=== PATIENT | male | born 1955 | race Caucasian/White ===

== ENCOUNTER → 2017-08-20 | Outpatient (CLI) | payer BC ==
[~2017-08-20] MED LIST: AMLO10TA2 PO; ASCO100033 PO; ASPI-555 PO; CALC-866 PO; CYAN25002 SL; EZET1TAB26 PO; FEXO180T94 PO; FINA5TAB41 PO; FLUT16H NASAL; FURO20TA4 PO; LISI-613 PO; LISI1TAB13 PO; MULT-603 PO; PANT40TA25 PO; POTA8CAP10 PO; REGADENOSON 0.4 MG/5 ML PF SYG IVP SCH; SUCR1TAB2 PO; UBID50TA3 PO
== END | disposition home or self-care (01) ==
LOC: SHCH 08:47
PROVIDERS: ATTEND Internal Medicine Cardiovascular Disease
DX: I25.10 Atherosclerotic heart disease of native coronary artery without angina pectoris (principal)
CPT/HCPCS: 78452; 93017; 96374; A9500 ×2; J2785

== ENCOUNTER → 2018-04-02 | Outpatient (CLI) | payer BC ==
[~2018-04-02] MED LIST changes: -AMLO10TA2 PO; +AMLO10TA6 PO; +LORA-705 PO; +METO-391 PO; -REGADENOSON 0.4 MG/5 ML PF SYG IVP SCH; +RIVA20TA PO
== END | disposition home or self-care (01) ==
LOC: SHCH 09:21
PROVIDERS: ATTEND Internal Medicine Cardiovascular Disease
DX: I51.7 Cardiomegaly (principal); I48.0 Paroxysmal atrial fibrillation
CPT/HCPCS: 93306

== ENCOUNTER 2018-04-09 14:54 | Inpatient (IN) | payer BC | END 2018-04-16 18:45 | disposition home or self-care (01) | LOC: EDH 14:54 → EDHIP 17:21 → 2DH 23:33 | DX: J18.9 Pneumonia, unspecified organism (principal); I50.33 Acute on chronic diastolic (congestive) heart failure; I48.92 Unspecified atrial flutter; I34.0 Nonrheumatic mitral (valve) insufficiency; I10 Essential (primary) hypertension; Z91.041 Radiographic dye allergy status; I48.91 Unspecified atrial fibrillation; J45.909 Unspecified asthma, uncomplicated; I25.10 Atherosclerotic heart disease of native coronary artery without angina pectoris ==

== ENCOUNTER 2019-02-25 05:57 | Observation (INO) | payer BC ==
[2019-02-23 16:15] VITALS: BP 148/84
--- NOTE | 2019-02-23 16:16 | NUR ---
HR INFORMED DAWSON, MEDICAL IMAGING TECH OF PTS HEART RATE. PER DR. EARL, PT CAN GO HOME AND WILL PROCEED WITH PROCEDURE.
[2019-02-23 16:31] LABS: BASOPHILS % (AUTO) 0.7 % (0.0-5.0); EOSINOPHILS % (AUTO) 3.7 % (0.0-8.0); HEMATOCRIT 43.7 % (42-54); LYMPHOCYTES % (AUTO) 30.6 % (21.0-51.0); MEAN CORPUSCULAR HGB CONC 32.6 g/dL (32.0-36.0); MEAN CORPUSCULAR VOLUME 89.2 fL (79-99); MONOCYTES % (AUTO) 10.2 % (3.0-13.0); NEUTROPHILS % (AUTO) 54.8 % (40.0-77.0); PLATELET COUNT (AUTO) 194 K/uL (130-400); RED CELL DISTRIBUTION WIDTH 15.1 % (11.0-15.5); WHITE BLOOD COUNT (AUTO) 7.4 K/uL (4.8-10.8)
[2019-02-23 16:43] LABS: INR 1.15 (0.85-1.15); PARTIAL THROMBOPLASTIN TIME 32.1 SEC (26.3-35.5)
--- NOTE | 2019-02-24 13:28 | NUR ---
METOPROLOL INFORMED NATANAEL THAKKAR OF PT TAKING METOPROLOL 100MG BID AND NOT 150MG BID H&P STATES. PER JIGNESH MCQUEEN , OK TO PROCEED WITH PLANNED PROCEDURE.
[2019-02-25] VITALS (10 sets, daily range): BP systolic 86–137; BP diastolic 55–77
[~2019-02-25] VITALS: Ht 170.2 cm; Wt 106.0 kg
[~2019-02-25 05:57] MED LIST changes: +AEC81 PO; +ALBUTEROL SULFATE IH; -AMLO10TA6 PO; -ASPI-555 PO; -CALC-866 PO; -CYAN25002 SL; +DILT240C98 PO; -EZET1TAB26 PO; -FEXO180T94 PO; +FISH1CAP63 PO; +FLONASE NASAL; -FLUT16H NASAL; -FURO20TA4 PO; -LISI1TAB13 PO; +LISI1TAB29 PO; -LORA-705 PO; -METO-391 PO; +METOPROLOL ER PO; -POTA8CAP10 PO; +PROP325C5 PO; +SODIUM CHLORIDE 0.9% 500ML 500 ML IV SCH; -UBID50TA3 PO
[2019-02-25] MEDS ORDERED: SODIUM CHLORIDE 0.9% 1000ML 1,000 ML IV ONE (06:17)
[2019-02-25] MEDS ORDERED: LIDOCAINE HCL 2% 20ML ONE (08:32)
[2019-02-25] MEDS ORDERED: HEPARIN SODIUM 1000UNIT/ML 10ML VIAL ONE (08:32)
[2019-02-25] MEDS ORDERED: MIDAZOLAM HCL 1 MG/ML 2ML VIAL ONE ×3 (09:27→10:14)
[2019-02-25] MEDS ORDERED: MEPERIDINE-PF 25 MG/ML SYG ONE ×3 (09:27→10:14)
[2019-02-25] MEDS ORDERED: FLUMAZENIL 0.1MG/1ML 5ML VIAL IV ONE (10:37)
[2019-02-25] MEDS ORDERED: ALBUTEROL SULFATE 0.083% 2.5 MG/3 ML INH IH ONE (11:30)
--- NOTE | 2019-02-25 11:45 | NUR ---
PT BACK FROM [facility] [facility] VIA BED, PT. HAD A SUCCESSFUL A-FLUTTER ABLATION AND IS NOW IN SINUS. PT IS ON A NON-REBREATHER 2 [address]ERS[address]SPO2 86%. DR. EARL AWARE, PT. BEING ADMITTED TO PCCU, AND DR. LONGO FOR CONSULT.
--- NOTE | 2019-02-25 12:13 | NUR ---
PORTABLE X-RAY 1 VIEW DONE
--- NOTE | 2019-02-25 12:20 | NUR ---
SPOKE WITH DR. LONGO, TO ADMIT PT TO PCCU PER DAVID GARIBAY. IS AWARE OF PT. STATUS.
--- NOTE | 2019-02-25 13:18 | NUR ---
BRITTANIE LAWSON WEATHERIZATION ADMINISTRATOR HERE TO SEE PT. IN RM DAY 16
--- NOTE | 2019-02-25 13:40 | NUR ---
EKG ORDER PER DR. EARL DONE.
[2019-02-25] MEDS ORDERED: ONDANSETRON HCL 4 MG/2 ML VIAL IVP PRN (13:45)
[2019-02-25] MEDS ORDERED: ACETAMINOPHEN 325 MG TAB PO PRN (13:45)
--- NOTE | 2019-02-25 13:50 | NUR ---
PT. TSF TO 223 BY BED, ON O2 15 LITERS ON NONREBREATHER, REPORT GIVEN TO MELECIO BEAVER RN, BEDSIDE. PT.SITE RIGHT GROIN IS DRY AND INTACT. NO BLEEDING NO HEMATOMA, DP BILATERAL PRESENT. PT. VITALS STABLE.
[2019-02-25] MEDS ORDERED: APIXABAN 5 MG TABLET PO SCH (15:30)
[2019-02-26 03:00] VITALS: BP 141/82
[2019-02-26 06:19] LABS: BASOPHILS % (AUTO) 0.4 % (0.0-5.0); HEMATOCRIT 39.1 % (42-54); LYMPHOCYTES % (AUTO) 18.6 % (21.0-51.0); MEAN CORPUSCULAR HEMOGLOBIN 28.9 pg (27.0-33.0); MEAN CORPUSCULAR HGB CONC 32.7 g/dL (32.0-36.0); MEAN CORPUSCULAR VOLUME 88.5 fL (79-99); MONOCYTES % (AUTO) 11.6 % (3.0-13.0); NEUTROPHILS % (AUTO) 68.4 % (40.0-77.0); PLATELET COUNT (AUTO) 172 K/uL (130-400); RED BLOOD CELL COUNT(AUTO) 4.42 MIL/uL (4.50-6.20); RED CELL DISTRIBUTION WIDTH 15.3 % (11.0-15.5); WHITE BLOOD COUNT (AUTO) 8.6 K/uL (4.8-10.8)
[2019-02-26 06:31] LABS: POTASSIUM 4.1 mmol/L (3.5-5.1)
[2019-02-26 07:20] VITALS: BP 137/76
--- NOTE | 2019-02-26 07:45 | NUR ---
AM ASSESSMENT PT LAYING IN BED, HOB ELEVATED 30 DEGREES, WATCHING TV. A/O X 3. NO SOB. NO DISTRESS NOTED. DENIES CHEST PAIN OR DISCOMFORT. DENIES INCISIONAL PAIN. TELE: SR. DENIES N/V AND/OR DIARRHEA. RT GROIN DSG DRY & INTACT. DSTAT REMOVED @ THIS TIME. NO BLEEDING, NO HEMATOMA NOTED. (+) BILATERAL PEDAL PULSES. BLE PINK & WARM TO TOUCH. UP AD CHRIST. INSTRUCTED TO CALL FOR ASSISTANCE. CALL YUNIER W/IN REACH.
[2019-02-26] MEDS ORDERED: RIVAROXABAN 20 MG TABLET PO SCH (09:00)
[2019-02-26] MEDS ORDERED: PANTOPRAZOLE SODIUM 40 MG TABLET.DR PO SCH (09:00)
[2019-02-26 11:25] VITALS: BP 140/74
--- NOTE | 2019-02-26 12:15 | NUR ---
DISCHARGE VERBAL & WRITTEN DISCHARGE INSTRUCTIONS REVIEWED & GIVEN TO PT & SPOUSE. QUESTIONS ENCOURAGED & CLARIFIED. PROPER CARE & ACTIVITY AFTER CARDIAC ABLATION. PT TO CONTINUE HOME MEDICATIONS. F/U APPT INFO REVIEWED. TELE HUSAM REMOVED. IV DISCONTINUED. PT & SPOUSE TO GATHER PERSONAL BELONGINGS. WILL NOTIFY STAFF WHEN READY TO BE TAKEN TO PRIVATE VEHICLE.
--- NOTE | 2019-02-26 12:50 | NUR ---
DISCHARGE PT TAKEN TO PRIVATE VEHICLE VIA WC BY Dev DALE PCP, ACCOMPANIED BY SPOUSE. NO DISTRESS NOTED.
== END 2019-02-26 12:50 | disposition home or self-care (01) ==
LOC: DAH 05:57 → DAHIP 05:58 → DAH 05:58 → 2DH 18:38
PROVIDERS: ADMIT Internal Medicine; ATTEND Internal Medicine
DX: I48.92 Unspecified atrial flutter (principal); I48.0 Paroxysmal atrial fibrillation; I10 Essential (primary) hypertension; I45.89 Other specified conduction disorders; E78.5 Hyperlipidemia, unspecified; I73.9 Peripheral vascular disease, unspecified; K21.9 Gastro-esophageal reflux disease without esophagitis; K76.0 Fatty (change of) liver, not elsewhere classified; D50.9 Iron deficiency anemia, unspecified; N40.0 Benign prostatic hyperplasia without lower urinary tract symptoms; I25.10 Atherosclerotic heart disease of native coronary artery without angina pectoris; Z79.01 Long term (current) use of anticoagulants; Z79.82 Long term (current) use of aspirin; Z79.899 Other long term (current) drug therapy
CPT/HCPCS: 36415 ×2; 71045; 71046; 80048 ×2; 82948 ×5; 85025 ×2; 85610; 85730; 93005 ×2; 93613; 93621; 93653; 94640; 94660; A4215; A4216; A4221; A4222; A4223 ×3; A4606; A4649 ×2; A4663; C1730; C1732; C1894 ×2; G0378 ×31; J1644 ×2; J2175 ×3; J2250 ×3; J3490 ×2; J7030; 99156; 99157

== ENCOUNTER → 2021-07-12 | Outpatient (CLI) | payer BC, MEDICARE ==
[~2021-07-12] MED LIST changes: -LISI-613 PO; -LISI1TAB29 PO; +LISI1TAB53 PO; +LISI20TA24 PO; -PANT40TA25 PO; +PANT40TA54 PO; -SODIUM CHLORIDE 0.9% 500ML 500 ML IV SCH
== END | disposition home or self-care (01) ==
LOC: SHCH 09:56
PROVIDERS: ATTEND Internal Medicine Cardiovascular Disease
DX: I48.0 Paroxysmal atrial fibrillation (principal); I11.9 Hypertensive heart disease without heart failure; I25.10 Atherosclerotic heart disease of native coronary artery without angina pectoris; E78.5 Hyperlipidemia, unspecified
CPT/HCPCS: 93306

== ENCOUNTER 2021-11-11 06:38 | Day surgery (SDC) | payer BC, MEDICARE ==
[2021-11-07 13:40] LABS: BASOPHILS % (AUTO) 0.8 % (0.0-5.0); EOSINOPHILS % (AUTO) 3.5 % (0.0-8.0); HEMATOCRIT 39.4 % (42-54); LYMPHOCYTES % (AUTO) 28.3 % (21.0-51.0); MEAN CORPUSCULAR HEMOGLOBIN 25.8 pg (27.0-33.0); MEAN CORPUSCULAR HGB CONC 30.2 g/dL (32.0-36.0); MEAN CORPUSCULAR VOLUME 85.3 fL (79-99); MONOCYTES % (AUTO) 10.2 % (3.0-13.0); NEUTROPHILS % (AUTO) 56.9 % (40.0-77.0); PLATELET COUNT (AUTO) 230 K/uL (130-400); RED BLOOD CELL COUNT(AUTO) 4.62 MIL/uL (4.50-6.20); RED CELL DISTRIBUTION WIDTH 17.6 % (11.0-15.5); WHITE BLOOD COUNT (AUTO) 9.3 K/uL (4.8-10.8)
[2021-11-07 13:50] LABS: CREATININE 1.1 mg/dL (0.5-1.5); POTASSIUM 4.2 mmol/L (3.5-5.1)
[2021-11-07 13:54] LABS: INR 1.57 (0.85-1.15); PROTHROMBIN TIME 16.7 SEC (9.6-11.6)
[2021-11-07 13:55] LABS: PARTIAL THROMBOPLASTIN TIME 39.1 SEC (26.3-35.5)
[2021-11-08 09:08] VITALS: BP 147/75
[2021-11-11] VITALS (19 sets, daily range): BP systolic 124–156; BP diastolic 69–92
[~2021-11-11] VITALS: Ht 170.2 cm; Wt 100.9 kg
[~2021-11-11 06:38] MED LIST changes: -ALBUTEROL SULFATE IH; +CHOL200052 PO; +DRON400T7 PO; +EZET10TA48 PO; -FLONASE NASAL; -LISI20TA24 PO; +METO-391 PO; -METOPROLOL ER PO; -PANT40TA54 PO; -PROP325C5 PO; +ROSU40TA21 PO; -SUCR1TAB2 PO; +VITA1CAP85 PO
[2021-11-11] MEDS ORDERED: 0.9%NACL 1000ML 1,000 ML IV ONE (07:59)
== END 2021-11-11 10:40 | disposition home or self-care (01) ==
LOC: CLH 06:38 → DAH 06:38 → CLH 10:40
PROVIDERS: ATTEND Internal Medicine Cardiovascular Disease
DX: I48.19 Other persistent atrial fibrillation (principal); I10 Essential (primary) hypertension; K21.9 Gastro-esophageal reflux disease without esophagitis; E78.5 Hyperlipidemia, unspecified; E11.51 Type 2 diabetes mellitus with diabetic peripheral angiopathy without gangrene; D50.9 Iron deficiency anemia, unspecified; Z82.49 Family history of ischemic heart disease and other diseases of the circulatory system; Z98.890 Other specified postprocedural states; Z79.01 Long term (current) use of anticoagulants; Z88.2 Allergy status to sulfonamides
CPT/HCPCS: 87426; 80048; 85025; 85610; 85730; 36415; 92960; 93005 ×2; J7030; A4215; A4222; A4221; A4663; A4216; A4606; A4223 ×3; 99152

== ENCOUNTER → 2021-12-10 | Outpatient (CLI) | payer BC, MEDICARE ==
[~2021-12-10] MED LIST changes: +FOLI0.8T3 PO; +IOHEXOL 350 MG/ML 100ML INFUS..BTL IV ONE; +VITAMIN B12 SL
== END | disposition home or self-care (01) ==
LOC: RAH 12-04 10:05
PROVIDERS: ATTEND Internal Medicine Cardiovascular Disease
DX: I51.7 Cardiomegaly (principal); I48.19 Other persistent atrial fibrillation; I25.10 Atherosclerotic heart disease of native coronary artery without angina pectoris; E04.1 Nontoxic single thyroid nodule; I87.8 Other specified disorders of veins; K44.9 Diaphragmatic hernia without obstruction or gangrene; K76.0 Fatty (change of) liver, not elsewhere classified; M47.815 Spondylosis without myelopathy or radiculopathy, thoracolumbar region
CPT/HCPCS: 71275; Q9967

== ENCOUNTER 2021-12-17 05:52 | Inpatient (IN) | payer BC, MEDICARE ==
[2021-12-12 09:59] LABS: BASOPHILS % (AUTO) 0.6 % (0.0-5.0); HEMATOCRIT 40.5 % (42-54); MEAN CORPUSCULAR HEMOGLOBIN 25.3 pg (27.0-33.0); MEAN CORPUSCULAR HGB CONC 30.4 g/dL (32.0-36.0); MEAN CORPUSCULAR VOLUME 83.3 fL (79-99); MONOCYTES % (AUTO) 11.7 % (3.0-13.0); NEUTROPHILS % (AUTO) 58.3 % (40.0-77.0); PLATELET COUNT (AUTO) 208 K/uL (130-400); RED BLOOD CELL COUNT(AUTO) 4.86 MIL/uL (4.50-6.20); RED CELL DISTRIBUTION WIDTH 17.2 % (11.0-15.5)
[2021-12-12 10:09] LABS: INR 1.49 (0.85-1.15); PROTHROMBIN TIME 15.9 SEC (9.6-11.6)
[2021-12-12 10:11] LABS: POTASSIUM 4.1 mmol/L (3.5-5.1)
[2021-12-12 11:30] VITALS: BP 141/78
[2021-12-17] VITALS (23 sets, daily range): BP systolic 122–147; BP diastolic 54–81
[~2021-12-17] VITALS: Ht 170.2 cm; Wt 113.4 kg
[~2021-12-17 05:52] MED LIST changes: -IOHEXOL 350 MG/ML 100ML INFUS..BTL IV ONE
[2021-12-17] MEDS ORDERED: HEPARIN 10,000 UNIT/10ML (1,000 UNIT/ML) VIAL ONE ×2 (07:16→07:51)
[2021-12-17] MEDS ORDERED: LIDOCAINE HCL 1% 20 ML VIAL ONE ×2 (07:16→07:51)
[2021-12-17] MEDS ORDERED: MIDAZOLAM HCL 1 MG/ML 2ML VIAL ONE (07:47)
[2021-12-17] MEDS ORDERED: ONDANSETRON 4MG INJ ONE (07:51)
[2021-12-17] MEDS ORDERED: GLYCOPYRROLATE 1 MG/5 ML SYRINGE ONE (07:51)
[2021-12-17] MEDS ORDERED: PHENYLEPHRINE HCL 10 MG/ML 1ML VIAL IV ONE (07:51)
[2021-12-17] MEDS ORDERED: SUCCINYLCHOLINE CHLORIDE 20 MG/ML 10 ML VIAL ONE (07:51)
[2021-12-17] MEDS ORDERED: EPHEDRINE SULFATE 50 MG/ML AMPULE ONE ×2 (07:52→11:12)
[2021-12-17] MEDS ORDERED: NEOSTIGMINE 5MG/5ML SYR IV ONE (07:52)
[2021-12-17] MEDS ORDERED: PROPOFOL 10 MG/ML 20ML VIAL IV ONE (07:52)
[2021-12-17] MEDS ORDERED: ROCURONIUM 10MG/1ML SYR 10 MG/ML ML ONE (07:52)
[2021-12-17] MEDS ORDERED: FENTANYL CITRATE PF 50 MCG/1 ML 2ML VIAL ONE ×2 (07:52→11:37)
[2021-12-17] MEDS ORDERED: 0.9%NACL 1000ML 1,000 ML IV ONE (08:23)
[2021-12-17] MEDS ORDERED: ISOPROTERENOL HCL 0.2 MG/ML AMP/VIAL/BAG ONE (11:03)
[2021-12-17] MEDS ORDERED: PROTAMINE SULFATE 10 MG/ML 25ML VIAL IV ONE (11:51)
[2021-12-17] MEDS: SUCRALFATE 1 GM TABLET PO SCH ×2 (12:00→17:24)
[2021-12-17] MEDS ORDERED: PANTOPRAZOLE 40 MG TAB DR PO SCH (12:00)
[2021-12-17] MEDS ORDERED: APIXABAN 5 MG TABLET PO SCH (20:00)
[2021-12-17] MEDS: FISH OIL 1000 MG/CAP PO SCH (20:19)
[2021-12-17] MEDS: EZETIMIBE 10 MG TAB PO SCH (20:19)
[2021-12-17] MEDS: METOPROLOL SUCCINATE 50 MG TAB.SR.24H PO SCH (20:19)
[2021-12-17] MEDS: ASPIRIN 81 MG EC TAB PO SCH (20:19)
[2021-12-17] MEDS: DRONEDARONE HYDROCHLORIDE 400 MG TABLET PO SCH (20:19)
[2021-12-17] MEDS: ATORVASTATIN 40 MG TABLET PO SCH (20:19)
[2021-12-18] VITALS (11 sets, daily range): BP systolic 110–154; BP diastolic 55–91
[2021-12-18] MEDS: SUCRALFATE 1 GM TABLET PO SCH ×5 (01:08→23:02)
[2021-12-18 04:08] LABS: BASOPHILS % (AUTO) 0.2 % (0.0-5.0); EOSINOPHILS % (AUTO) 0.2 % (0.0-8.0); HEMATOCRIT 38.1 % (42-54); LYMPHOCYTES % (AUTO) 9.3 % (21.0-51.0); MEAN CORPUSCULAR HEMOGLOBIN 24.8 pg (27.0-33.0); MEAN CORPUSCULAR HGB CONC 29.9 g/dL (32.0-36.0); MONOCYTES % (AUTO) 14.3 % (3.0-13.0); NEUTROPHILS % (AUTO) 75.5 % (40.0-77.0); PLATELET COUNT (AUTO) 195 K/uL (130-400); RED BLOOD CELL COUNT(AUTO) 4.59 MIL/uL (4.50-6.20); RED CELL DISTRIBUTION WIDTH 18.1 % (11.0-15.5); WHITE BLOOD COUNT (AUTO) 12.2 K/uL (4.8-10.8)
[2021-12-18 04:29] LABS: POTASSIUM 3.5 mmol/L (3.5-5.1)
[2021-12-18] MEDS ORDERED: POTASSIUM CHLORIDE 20MEQ/100ML 100 ML IV PRN (07:00)
[2021-12-18] MEDS ORDERED: LIDOCAINE HCL-MPF 1% 2ML VIAL IV PRN (07:00)
[2021-12-18] MEDS ORDERED: POTASSIUM CHLORIDE 10% ELIXIR 20 MEQ/15 ML UDCUP PO PRN (07:00)
[2021-12-18] MEDS: KCL 20 MEQ ERTAB PO PRN ×2 (07:14→09:19)
[2021-12-18] MEDS: CHOLECALCIFEROL 100 MCG PO SCH (07:31)
[2021-12-18] MEDS ORDERED: DILTIAZEM 120MG SR CAP PO SCH (09:00)
[2021-12-18] MEDS: HYDROCHLOROTHIAZIDE 25 MG TABLET PO SCH (09:15)
[2021-12-18] MEDS: LISINOPRIL 20 MG TABLET PO SCH (09:18)
[2021-12-18] MEDS: DRONEDARONE HYDROCHLORIDE 400 MG TABLET PO SCH (09:18)
[2021-12-18] MEDS: ASCORBIC ACID 500 MG TAB PO SCH (09:19)
[2021-12-18] MEDS: FINASTERIDE 5 MG TABLET PO SCH (09:19)
[2021-12-18] MEDS: METOPROLOL SUCCINATE 50 MG TAB.SR.24H PO SCH ×2 (09:19→20:17)
[2021-12-18] MEDS: MULTIVITAMIN TABLET PO SCH (09:19)
[2021-12-18] MEDS: FISH OIL 1000 MG/CAP PO SCH ×2 (09:19→20:17)
[2021-12-18] MEDS: CYANOCOBALAMIN (VITAMIN B-12) 1,000 MCG TABLET PO SCH (09:19)
[2021-12-18] MEDS: FOLIC ACID 1 MG TABLET PO SCH (09:20)
[2021-12-18] MEDS: PANTOPRAZOLE 40 MG TAB DR PO SCH (09:20)
[2021-12-18] MEDS: RIVAROXABAN 20 MG TABLET PO SCH (09:20)
[2021-12-18] MEDS ORDERED: ACETAMINOPHEN 500 MG TABLET PO PRN (12:30)
[2021-12-18] MEDS ORDERED: MAGNESIUM 2GM PREMIX 50ML 50 ML IV PRN (12:30)
[2021-12-18] MEDS ORDERED: ACETAMINOPHEN 500 MG TABLET PO ONE (12:30)
[2021-12-18] MEDS ORDERED: METOPROLOL TARTRATE 1 MG/ML 5ML VIAL IV STA (12:36)
[2021-12-18] MEDS ORDERED: METOPROLOL TARTRATE 1 MG/ML 5ML VIAL IV ONE (12:41)
[2021-12-18 12:43] LABS: MAGNESIUM 2.1 mg/dL (1.80-2.40); POTASSIUM 3.6 mmol/L (3.5-5.1)
[2021-12-18] MEDS ORDERED: VERAPAMIL HCL 2.5 MG/ML VIAL IVP SCH (12:54)
[2021-12-18] MEDS ORDERED: METOPROLOL TARTRATE 1 MG/ML 5ML VIAL IV PRN (13:00)
[2021-12-18] MEDS ORDERED: PHARMACY COMMUNICATION MISC SCH ×2 (13:00)
[2021-12-18] MEDS: VERAPAMIL HCL 80 MG TABLET PO SCH ×2 (13:24→20:19)
[2021-12-18] MEDS ORDERED: AMIODARONE 360MG/200ML D5W(1MG/MIN) IV SCH ×2 (13:30)
[2021-12-18] MEDS: AMIODARONE 540 MG/D5W 300ML (0.5MG/MIN) IV SCH ×2 (17:47)
[2021-12-18] MEDS: ATORVASTATIN 40 MG TABLET PO SCH (20:17)
[2021-12-18] MEDS: ASPIRIN 81 MG EC TAB PO SCH (20:17)
[2021-12-18] MEDS: EZETIMIBE 10 MG TAB PO SCH (20:17)
[2021-12-19] VITALS (10 sets, daily range): BP systolic 122–154; BP diastolic 55–82
[2021-12-19] MEDS: SUCRALFATE 1 GM TABLET PO SCH ×2 (05:14→11:08)
[2021-12-19] MEDS: CHOLECALCIFEROL 100 MCG PO SCH (07:18)
[2021-12-19] MEDS: HYDROCHLOROTHIAZIDE 25 MG TABLET PO SCH (08:57)
[2021-12-19] MEDS: CYANOCOBALAMIN (VITAMIN B-12) 1,000 MCG TABLET PO SCH (08:57)
[2021-12-19] MEDS: ASCORBIC ACID 500 MG TAB PO SCH (08:58)
[2021-12-19] MEDS: LISINOPRIL 20 MG TABLET PO SCH (08:58)
[2021-12-19] MEDS: RIVAROXABAN 20 MG TABLET PO SCH (08:58)
[2021-12-19] MEDS: FINASTERIDE 5 MG TABLET PO SCH (08:58)
[2021-12-19] MEDS: VERAPAMIL HCL 80 MG TABLET PO SCH ×2 (08:58→13:23)
[2021-12-19] MEDS: FISH OIL 1000 MG/CAP PO SCH (08:58)
[2021-12-19] MEDS: METOPROLOL SUCCINATE 50 MG TAB.SR.24H PO SCH (08:58)
[2021-12-19] MEDS: FOLIC ACID 1 MG TABLET PO SCH (08:58)
[2021-12-19] MEDS: PANTOPRAZOLE 40 MG TAB DR PO SCH (08:58)
[2021-12-19] MEDS: MULTIVITAMIN TABLET PO SCH (08:59)
[2021-12-19] MEDS: AMIODARONE 540 MG/D5W 300ML (0.5MG/MIN) IV SCH ×2 (10:27)
[2021-12-19] MEDS ORDERED: PROPOFOL 10 MG/ML 20ML VIAL IV ONE (11:35)
[2021-12-19] MEDS ORDERED: AMIO200T68 PO (12:18)
[2021-12-19] MEDS ORDERED: VERA120T92 PO (12:18)
[2021-12-19] MEDS ORDERED: PANT40TA PO (12:18)
[2021-12-19] MEDS ORDERED: METO-391 PO (12:18)
[2021-12-19] MEDS ORDERED: CARAL PO (12:18)
== END 2021-12-19 14:50 | disposition home or self-care (01) | DRG 274 ==
LOC: DAH 05:52 → OBSVTOIN 05:53 → DAHIP 05:53 → DAH 05:53 → 2DH 16:31
PROVIDERS: ADMIT Internal Medicine Cardiovascular Disease; ATTEND Internal Medicine Cardiovascular Disease
PROC: 02583ZZ Destruction of Conduction Mechanism, Percutaneous Approach (ICD-10-PCS; 2021-12-17)
PROC: 5A2204Z Restoration of Cardiac Rhythm, Single (ICD-10-PCS; principal; 2021-12-19)
DX: I48.19 Other persistent atrial fibrillation (principal); I10 Essential (primary) hypertension; Z20.822 Contact with and (suspected) exposure to COVID-19; E78.5 Hyperlipidemia, unspecified; I73.9 Peripheral vascular disease, unspecified; K21.9 Gastro-esophageal reflux disease without esophagitis; N40.0 Benign prostatic hyperplasia without lower urinary tract symptoms; I25.10 Atherosclerotic heart disease of native coronary artery without angina pectoris; Z88.2 Allergy status to sulfonamides; Z88.8 Allergy status to other drugs, medicaments and biological substances
CPT/HCPCS: 36415; 80048; 82948; 83735; 84132; 85025; 85347; 85610; 85730; 87426; 93005; 93622; 93623; 93656; 93657; A4344; A4606; C1893; C1894; G0378; J0282; J0330; J1644; J2250; J2370; J2405; J2704; J2710; J2720; J3010; J3490; J7030; J7060

== ENCOUNTER 2022-01-06 01:57 | Inpatient (IN) | payer BC, MEDICARE ==
[~2022-01-06] VITALS: Ht 170.2 cm; Wt 98.3 kg
[~2022-01-06 01:57] MED LIST changes: +AMIO200T68 PO; +CARAL PO; -DILT240C98 PO; -DRON400T7 PO; +PANT40TA PO; +VERA120T92 PO
[2022-01-06 02:22] LABS: BASOPHILS % (AUTO) 0.2 % (0.0-5.0); EOSINOPHILS % (AUTO) 1.7 % (0.0-8.0); HEMATOCRIT 39.5 % (42-54); LYMPHOCYTES % (AUTO) 12.7 % (21.0-51.0); MEAN CORPUSCULAR HEMOGLOBIN 24.9 pg (27.0-33.0); MEAN CORPUSCULAR HGB CONC 30.6 g/dL (32.0-36.0); MEAN CORPUSCULAR VOLUME 81.3 fL (79-99); MONOCYTES % (AUTO) 10.1 % (3.0-13.0); NEUTROPHILS % (AUTO) 74.8 % (40.0-77.0); PLATELET COUNT (AUTO) 245 K/uL (130-400); RED BLOOD CELL COUNT(AUTO) 4.86 MIL/uL (4.50-6.20); RED CELL DISTRIBUTION WIDTH 19.3 % (11.0-15.5); WHITE BLOOD COUNT (AUTO) 10.1 K/uL (4.8-10.8)
[2022-01-06 02:32] LABS: INR 1.41 (0.85-1.15); PROTHROMBIN TIME 15.1 SEC (9.6-11.6)
[2022-01-06 02:33] LABS: PARTIAL THROMBOPLASTIN TIME 32.2 SEC (26.3-35.5)
[2022-01-06 02:34] LABS: CREATININE 1.1 mg/dL (0.5-1.5); POTASSIUM 3.4 mmol/L (3.5-5.1)
[2022-01-06 02:41] LABS: ALBUMIN 3.2 g/dL (3.5-5.0); MAGNESIUM 1.8 mg/dL (1.80-2.40)
[2022-01-06] MEDS ORDERED: ACETAMINOPHEN 325 MG TAB PO PRN (03:30)
[2022-01-06] MEDS ORDERED: ONDANSETRON 4MG INJ IVP PRN (03:30)
[2022-01-06] MEDS ORDERED: KCL 20 MEQ ERTAB PO ONE (03:30)
[2022-01-06 09:42] VITALS: BP 143/78
[2022-01-06 10:13] LABS: BASOPHILS % (AUTO) 0.3 % (0.0-5.0); EOSINOPHILS % (AUTO) 0.5 % (0.0-8.0); HEMATOCRIT 37.1 % (42-54); LYMPHOCYTES % (AUTO) 21.4 % (21.0-51.0); MEAN CORPUSCULAR HEMOGLOBIN 25.1 pg (27.0-33.0); MEAN CORPUSCULAR VOLUME 80.8 fL (79-99); MONOCYTES % (AUTO) 9.3 % (3.0-13.0); NEUTROPHILS % (AUTO) 68.1 % (40.0-77.0); PLATELET COUNT (AUTO) 240 K/uL (130-400); RED BLOOD CELL COUNT(AUTO) 4.59 MIL/uL (4.50-6.20); RED CELL DISTRIBUTION WIDTH 19.7 % (11.0-15.5); WHITE BLOOD COUNT (AUTO) 7.8 K/uL (4.8-10.8)
[2022-01-06] MEDS ORDERED: AMIO200T68 PO (10:21)
[2022-01-06 10:23] LABS: CREATININE 0.9 mg/dL (0.5-1.5); MAGNESIUM 1.9 mg/dL (1.80-2.40); POTASSIUM 3.7 mmol/L (3.5-5.1)
[2022-01-06 10:32] LABS: HEMOGLOBIN A1C 6.6 % (4.0-6.0)
[2022-01-06] MEDS: MULTIVITS,STRESS FORMULA/ZINC 1 TABLET PO SCH (11:05)
[2022-01-06] MEDS: HYDROCHLOROTHIAZIDE 25 MG TABLET PO SCH (11:07)
[2022-01-06] MEDS: CYANOCOBALAMIN (VITAMIN B-12) 1,000 MCG TABLET PO SCH (11:23)
[2022-01-06] MEDS: FISH OIL 1000 MG/CAP PO SCH ×2 (11:23→20:25)
[2022-01-06] MEDS: ASCORBIC ACID 500 MG TAB PO SCH (11:23)
[2022-01-06] MEDS: FOLIC ACID 1 MG TABLET PO SCH (11:23)
[2022-01-06] MEDS: LISINOPRIL 20 MG TABLET PO SCH (11:24)
[2022-01-06 16:00] VITALS: BP 134/65
[2022-01-06 19:55] VITALS: BP 143/79
[2022-01-06] MEDS ORDERED: ATORVASTATIN 40 MG TABLET PO SCH (21:00)
[2022-01-06] MEDS ORDERED: ASPIRIN 81 MG EC TAB PO SCH (21:00)
[2022-01-06] MEDS ORDERED: EZETIMIBE 10 MG TAB PO SCH (21:00)
[2022-01-07 00:09] VITALS: BP 136/76
[2022-01-07 04:38] VITALS: BP 131/84
[2022-01-07 08:00] VITALS: BP 126/78
[2022-01-07] MEDS ORDERED: METOPROLOL SUCCINATE 50 MG TAB.SR.24H PO SCH (09:00)
[2022-01-07] MEDS ORDERED: AMIODARONE 200 MG TABLET PO SCH (09:00)
[2022-01-07] MEDS ORDERED: RIVAROXABAN 20 MG TABLET PO SCH (09:00)
[2022-01-07] MEDS ORDERED: VITAMIN B COMPLEX 1 CAPSULE PO SCH (09:00)
[2022-01-07] MEDS ORDERED: CHOLECALCIFEROL 100 MCG PO SCH (09:00)
[2022-01-07] MEDS: MULTIVITS,STRESS FORMULA/ZINC 1 TABLET PO SCH (09:00)
[2022-01-07] MEDS ORDERED: FINASTERIDE 5 MG TABLET PO SCH (09:00)
[2022-01-07] MEDS: LISINOPRIL 20 MG TABLET PO SCH (09:39)
[2022-01-07] MEDS: FISH OIL 1000 MG/CAP PO SCH (09:39)
[2022-01-07] MEDS: FOLIC ACID 1 MG TABLET PO SCH (09:40)
[2022-01-07] MEDS: CYANOCOBALAMIN (VITAMIN B-12) 1,000 MCG TABLET PO SCH (09:40)
[2022-01-07] MEDS: ASCORBIC ACID 500 MG TAB PO SCH (09:40)
[2022-01-07] MEDS: HYDROCHLOROTHIAZIDE 25 MG TABLET PO SCH (09:53)
[2022-01-07 12:16] VITALS: BP 139/72
== END 2022-01-07 14:55 | disposition home or self-care (01) | DRG 314 ==
LOC: EDH 01:57 → EDHIP 03:28 → 2AH 09:14
PROVIDERS: ADMIT Internal Medicine Infectious Disease; ATTEND Internal Medicine Infectious Disease
DX: I95.9 Hypotension, unspecified (principal); U07.1 COVID-19; I48.19 Other persistent atrial fibrillation; I48.4 Atypical atrial flutter; I49.8 Other specified cardiac arrhythmias; E78.5 Hyperlipidemia, unspecified; E87.6 Hypokalemia; Z68.33 Body mass index [BMI] 33.0-33.9, adult; E66.9 Obesity, unspecified; I10 Essential (primary) hypertension; N40.0 Benign prostatic hyperplasia without lower urinary tract symptoms; Z86.16 Personal history of COVID-19; Z88.2 Allergy status to sulfonamides; Z79.01 Long term (current) use of anticoagulants
CPT/HCPCS: 36415; 70450; 71045; 80048; 80053; 82550; 83036; 83735; 83874; 84484; 85025; 85610; 85730; 87635; 93005; G0378; J2405